=== PATIENT | male | born 1965 | race Caucasian/White ===

== ENCOUNTER 2020-11-24 10:39 | Emergency (ER) | payer SELFPAY ==
[2020-11-24 11:46] LABS: CHLORIDE,CL 97 mEq/L (98-106); SODIUM,NA 136 mEq/L (136-145)
[2020-11-24] MEDS ORDERED: Ondansetron 4 MG/2 ML SDV IVPUSH PRN (11:48)
--- NOTE | 2020-11-24 11:50 | EDM.PDOC ---
ED HPI GENERAL MEDICAL PROBLEM - General Chief Complaint: General Stated Complaint: ER Time Seen by Provider: 11/24/20 11:30 Source of Information: Reports: Patient History Limitations: Reports: No Limitations - History of Present Illness INITIAL COMMENTS - FREE TEXT/NARRATIVE: States that he woke up yesterday with vomiting and has had it on and off since. Hasn't been able to keep anything down except small amount of water. Has chills and doesn't now if he has had a fever as he is traveling through the area on way to [place]. He is unsure if COVID exposure. Has cough that he describes as his chronic cough as he smokes 2 pacs a day for 47 years. Has some body aches. Onset: Gradual Onset Date: 11/23/20 Location: Reports: Abdomen Associated Symptoms: Reports: Fever/Chills, Nausea/Vomiting Headache Pain Score (Numeric/FACES): 8 - Related Data Allergies Allergy/AdvReac Type Severity Reaction Status Date / Time No Known Allergies Allergy Verified 11/24/20 10:40 Home Meds: Home Meds . [No Known Home Meds] 11/24/20 [History] Past Medical History - Past Health History Medical/Surgical History: Denies Medical/Surgical History - Past Surgical History HEENT Surgical History: Reports: Oral Surgery Male Surgical History: Reports: Other (See Below) (urethra dilated) Social & Family History - Family History Cardiac: Reports: CAD Psychiatric: Reports: Depression - Tobacco Use Tobacco Use Status *Q: Current Every Day Tobacco User Years of Tobacco use: 47 Packs/Tins Daily: 2 - Caffeine Use Caffeine Use: Reports: Coffee, Soda Caffeine Use Comment: States he drinks coffee and pop constantly - Recreational Drug Use Recreational Drug Use: No - Living Situation & Occupation Living situation: Reports: , Alone Occupation: Employed ED ROS GENERAL - Review of Systems Review Of Systems: See Below Constitutional: Reports: Chills, Decreased Appetite HEENT: Reports: No Symptoms Respiratory: Reports: Cough Cardiovascular: Reports: No Symptoms GI/Abdominal: Reports: Abdominal Pain, Nausea, Vomiting. Denies: Diarrhea : Reports: No Symptoms Musculoskeletal: Reports: No Symptoms Skin: Reports: No Symptoms Neurological: Reports: No Symptoms ED EXAM, GENERAL - Physical Exam Exam: See Below Exam Limited By: No Limitations General Appearance: Alert, WD/WN, Mild Distress Ears: Normal External Exam, Normal Canal, Normal TMs Throat/Mouth: Normal Inspection, Normal Oropharynx Head: Atraumatic, Normocephalic Neck: Normal Inspection, Supple, Non-Tender, Full Range of Motion Respiratory/Chest: No Respiratory Distress, Lungs Clear, Wheezing (expiratory diffuse) Cardiovascular: Regular Rate, Rhythm, No Edema GI/Abdominal: Normal Bowel Sounds, Soft, Tender (diffuse tenderness with palpation. No guarding or rigidity noted.) Back Exam: Normal Inspection, Full Range of Motion Extremities: Non-Tender, No Pedal Edema, Normal Capillary Refill Neurological: Alert, Oriented Skin Exam: Warm, Dry, Intact Course - Vital Signs Last Recorded V/S: Last Vital Signs Temp 96.3 F L 11/24/20 10:41 Pulse 87 11/24/20 10:41 Resp 20 11/24/20 10:41 BP 151/87 H 11/24/20 10:41 Pulse Ox 98 11/24/20 10:41 - Orders/Labs/Meds Orders: Active Orders 24 hr Category Date Time Status Chest 2V [CR] Stat Exams 11/24/20 10:54 Taken COMPREHENSIVE METABOLIC PN,CMP [CHEM] Stat Lab 11/24/20 11:18 Received CREATINE KINASE,CK [CHEM] Stat Lab 11/24/20 11:18 Received D-DIMER QUANTITATIVE [COAG] Stat Lab 11/24/20 11:18 Received INR,PT,PROTHROMBIN TIME [COAG] Stat Lab 11/24/20 11:18 Received LACTIC ACID [CHEM] Stat Lab 11/24/20 10:54 Ordered PRO B-TYPE NATRIUR PEPT,BNPPRO [CHEM] Stat Lab 11/24/20 11:18 Received TROPONIN I [CHEM] Stat Lab 11/24/20 11:18 Received Labs: Laboratory Tests 11/24/20 11/24/20 Range/Units 10:54 11:18 WBC 12.6 H (5.0-10.0) 10^3/uL RBC 4.85 (4.50-6.00) 10^6/uL Hgb 16.1 (14.0-18.0) g/dL Hct 46.3 (40.0-54.0) % MCV 95.5 H (82.0-94.0) fL MCH 33.2 H (27.0-32.0) pg MCHC 34.8 (33.0-38.0) g/dL RDW Coeff of Spike 13.4 (11.0-15.0) % Plt Count 204 (150-400) 10^3/uL Neut % (Auto) 87.0 H (35-85) % Lymph % (Auto) 7.7 L (10-55) % Coffee % (Auto) 5.1 (0-16) % Eos % (Auto) 0 (0-5) % Baso % (Auto) 0.2 (0-3) % Neut # (Auto) 10.99 H (1.80-7.00) 10^3/uL Lymph # (Auto) 0.97 L (1.00-4.80) 10^3/uL Coffee # (Auto) 0.65 (0.00-0.80) 10^3/uL Eos # (Auto) 0.00 (0.00-0.45) 10^3/uL Baso # (Auto) 0.02 10^3/uL SARS CoV-2 RNA Rapid TIFFANI Negative (NEGATIVE) - Re-Assessments/Exams Free Text/Narrative Re-Assessment/Exam: 11/24/20 11:54 PCR test was obtained as he has many symptoms of COVID and potential exposure. Rapid COVID negative. 11/24/20 12:01 Discussed lab results with him including the elevated CK. He has been doing a lot of lifting with helping a friend move. No muscle pain. Normal Troponin Departure - Departure Time of Disposition: 12:09 Disposition: Home, Self-Care 01 Condition: Good Clinical Impression: Gastroenteritis - Discharge Information *PRESCRIPTION DRUG MONITORING PROGRAM REVIEWED*: Not Applicable *COPY OF PRESCRIPTION DRUG MONITORING REPORT IN PATIENT BONNIE: Not Applicable Instructions: Viral Gastroenteritis, Adult, [id number] Additional Instructions: start protonix 40 mg daily for 2 weeks follow up with primary care provider when return home if not improved and to follow up on the elevated CK level. You need to take precautions for COVID until test returns from the state lab- you will receive a phone call with those results when available Romulo to help with the nausea as needed. Push fluids as much as possible Sepsis Event Note (ED) - Evaluation Sepsis Screening Result: No Definite Risk - Focused Exam Vital Signs: Vital Signs Temp Pulse Resp BP Pulse Ox 11/24/20 10:41 96.3 F L 87 20 151/87 H 98 - Problem List & Annotations (1) Gastroenteritis SNOMED Code(s): 26005448 Code(s): K52.9 - NONINFECTIVE GASTROENTERITIS AND COLITIS, UNSPECIFIED Status: Acute Priority: High - Problem List Review Problem List Initiated/Reviewed/Updated: Yes - My Orders Last 24 Hours: My Active Orders 11/24/20 10:54 Chest 2V [CR] Stat LACTIC ACID [CHEM] Stat 11/24/20 11:18 COMPREHENSIVE METABOLIC PN,CMP [CHEM] Stat CREATINE KINASE,CK [CHEM] Stat D-DIMER QUANTITATIVE [COAG] Stat INR,PT,PROTHROMBIN TIME [COAG] Stat PRO B-TYPE NATRIUR PEPT,BNPPRO [CHEM] Stat TROPONIN I [CHEM] Stat - Assessment/Plan Last 24 Hours: My Active Orders 11/24/20 10:54 Chest 2V [CR] Stat LACTIC ACID [CHEM] Stat 11/24/20 11:18 COMPREHENSIVE METABOLIC PN,CMP [CHEM] Stat CREATINE KINASE,CK [CHEM] Stat D-DIMER QUANTITATIVE [COAG] Stat INR,PT,PROTHROMBIN TIME [COAG] Stat PRO B-TYPE NATRIUR PEPT,BNPPRO [CHEM] Stat TROPONIN I [CHEM] Stat
[2020-11-24] MEDS ORDERED: Pantoprazole 40 MG Vial IVPUSH SCH (12:00)
== END 2020-11-24 12:29 | disposition home or self-care (01) ==
LOC: CC.ED 10:39
DX: K52.9 Noninfective gastroenteritis and colitis, unspecified (principal); F17.210 Nicotine dependence, cigarettes, uncomplicated; Z20.822 Contact with and (suspected) exposure to COVID-19
CPT/HCPCS: 36415; 71046; 80053; 82550; 83605; 83880; 84484; 85025; 85379; 85610; 93005; 96374; 96375; 99284-25; C9113; J2405; U0002